=== PATIENT | male | born 2000 | race Hispanic/Latino ===

== ENCOUNTER 2021-06-26 03:26 | Emergency (ER) | payer MEDICAID ==
[2021-06-26] MEDS ORDERED: Ondansetron PF 4 MG/2 ML Vial ONE (04:10)
== END 2021-06-26 08:00 | disposition home or self-care (01) ==
LOC: CSHERS 03:26
DX: F10.129 Alcohol abuse with intoxication, unspecified (principal)
CPT/HCPCS: 99284; J2405